=== PATIENT | female | born 1960 | race Caucasian/White ===

== ENCOUNTER 2018-01-15 05:56 | Day surgery (SDC) | payer OTHER ==
[2018-01-10 08:34] VITALS: BMI 22.8
[2018-01-15] MEDS ORDERED: ceFAZolin IV 1 gm in Dextrose 1 GM/50 ML BAG IVPB ONE (07:30)
[2018-01-15] MEDS ORDERED: Bupivacaine 0.25% 20 ML INJ IJ ONE (07:31)
[2018-01-15] MEDS ORDERED: Lidocaine/Epinephrine 1% 1:100000 10 ML IJ ONE (07:31)
[2018-01-15] MEDS ORDERED: Midazolam 2 MG/2 ML VIAL ONE (08:24)
[2018-01-15] MEDS ORDERED: Propofol 10 mg/ml Inj (20 ML) ONE (08:24)
[2018-01-15] MEDS ORDERED: Lactated Ringer's 1,000 ML IV ONE (09:50)
[2018-01-15] MEDS ORDERED: HYDROmorphone 0.5 mg/0.5 ml ISec IVP PRN (09:55)
--- NOTE | 2018-01-15 10:28 | PCM.SURG1 ---
Surgeon's Initial Post Op Note - Surgeon's Notes Surgeon: [facility] Provider: Colleen PGY4 Type of Anesthesia: General LMA Pre-Operative Diagnosis: Left neck mass, Back mass Operative Findings: L neck lipoma, Sebaceous cyst of back Post-Operative Diagnosis: L neck lipoma, Back sebaceous cyst Operation Performed: Exicsion of neck lipoma and sebaceous cyst on back Specimen/Specimens Removed: lipoma, sebaceous cyst Estimated Blood Loss: EBL {In ML}: 10 Blood Products Given: N/A Drains Used: No Drains Post-Op Condition: Good Date of Surgery/Procedure: 01/15/18 Time of Surgery/Procedure: 10:28
[2018-01-15 11:31] VITALS: BP 128/70; PULSE 62; RESP 18; TEMP 97.1; O2SAT 98
--- NOTE | 2018-01-16 07:08 | OP ---
Copied To: Hamzah Martines Jr., MD Attending MD: Hamzah Martines Jr., MD PROCEDURE DATE: 01/15/2018 PREOPERATIVE DIAGNOSES: 1. A 6 cm lipoma of neck. 2. A 6 cm sebaceous cyst of back. SURGEON: Hamzah Martines M.D. MANAGER SAFE: Olegario Macias DO. ANESTHESIOLOGIST: Dr. León. TYPE OF ANESTHESIA: General anesthesia, LMA. DESCRIPTION OF PROCEDURE: The patient is a middle-aged woman who has lipoma on her neck, adjacent to the superior spinal accessory nerve, and she has also a large sebaceous cyst in the mid portion of her back, not too far away, about 4 inches away. The patient was given LMA anesthesia as well as local anesthesia by infiltration. The lipoma was removed first by pushing it medially as well as over the spine. At this point, we made an incision over it, and we were able to evacuate it intact, and far away from the spinal accessory nerve. After this had been done, we then turned our attention to the sebaceous cyst. This was slightly . The patient had received antibiotics at beginning of the procedure, and inside it was slightly infected, so we could not remove it intact. We did get into the capsule, but eventually, the entire capsule was removed but it was being removed. Detailed inspection was carried out of the wound, looking again for remnants of this and this was all completely excised. We then partially closed and partially packed this portion of the wound open, and we closed the neck wound. Blood loss of the procedure was 20 mL. Operation carried out: Excision of 6 cm cyst of back and a 6 cm lipoma of neck. Hamzah Martines Jr., MD cc: Marleen Oneal MD
== END 2018-01-15 14:52 | disposition home or self-care (01) ==
LOC: C.SDS 05:56
PROVIDERS: ATTEND Surgery Vascular Surgery
DX: D17.0 Benign lipomatous neoplasm of skin and subcutaneous tissue of head, face and neck (principal); L72.3 Sebaceous cyst
CPT/HCPCS: 11406; 11426; 88305; J0690; J1170; J2250; J2405; J2704; J3010; J7120

== ENCOUNTER 2018-10-08 11:24 | Outpatient (CLI) | payer OTHER | END 2018-10-08 11:25 | disposition home or self-care (01) | LOC: C.RADH 11:24 ==